=== PATIENT | female | born 1980 | race Caucasian/White ===

== ENCOUNTER 2021-02-27 09:33 | Emergency (ER) | payer OTHER ==
[~2021-02-27] VITALS: Ht 162.6 cm; Wt 65.9 kg
[2021-02-27 09:48] VITALS: BP 114/82; TEMP 97.9
[2021-02-27] MEDS ORDERED: MEDROL 4MG DOSPA4 MG PO (11:32)
[2021-02-27] MEDS ORDERED: FLEXERIL 1010 MG/TAB PO (11:32)
[2021-02-27 12:40] VITALS: PULSE 84
== END 2021-02-27 12:40 | disposition home or self-care (01) ==
LOC: COL.ER 09:33
DX: M54.16 Radiculopathy, lumbar region (principal); X50.0XXA Overexertion from strenuous movement or load, initial encounter
CPT/HCPCS: J1885; J2360

== ENCOUNTER → 2021-03-01 | Outpatient (CLI) | payer OTHER ==
[~2021-03-01] MED LIST: FLEXERIL 1010 MG/TAB PO; MEDROL 4MG DOSPA4 MG PO
== END ==
LOC: MC.RAD 11:45
DX: Z12.31 Encounter for screening mammogram for malignant neoplasm of breast (principal)